=== PATIENT | male | born 1960 | race Hispanic/Latino ===

== ENCOUNTER → 2020-07-24 | Outpatient (CLI) | payer OTHER | END | disposition home or self-care (01) | LOC: OIH 09:10 | PROVIDERS: ATTEND Family Medicine | DX: M47.816 Spondylosis without myelopathy or radiculopathy, lumbar region (principal); M48.061 Spinal stenosis, lumbar region without neurogenic claudication; M25.78 Osteophyte, vertebrae; M79.643 Pain in unspecified hand; M25.539 Pain in unspecified wrist; M13.80 Other specified arthritis, unspecified site; H91.90 Unspecified hearing loss, unspecified ear | CPT/HCPCS: 72100 ==